=== PATIENT | male | born 1980 | race Caucasian/White ===

== ENCOUNTER 2018-07-28 15:49 | Emergency (ER) | payer SELFPAY ==
[~2018-07-28] VITALS: Ht 172.7 cm; Wt 90.0 kg
[2018-07-28] MEDS ORDERED: HYDROCODONE/ACETAMINOPHEN 5/325MG TABLET PO ONE (19:00)
[2018-07-28] MEDS ORDERED: KETOROLAC 60MG/2ML VIAL IM ONE (19:00)
[2018-07-28 22:05] VITALS: BP 143/67
== END 2018-07-28 22:06 | disposition home or self-care (01) ==
LOC: ER 16:03
DX: S62.102A Fracture of unspecified carpal bone, left wrist, initial encounter for closed fracture (principal); V43.52XA Car driver injured in collision with other type car in traffic accident, initial encounter; Y93.9 Activity, unspecified; Y92.410 Unspecified street and highway as the place of occurrence of the external cause
CPT/HCPCS: 29125; 73110; 73562; 96372; 99283; J1885; A4565